=== PATIENT | male | born 2005 ===

== ENCOUNTER 2023-04-19 06:06 | Outpatient (RCR) | payer OTHER, SELFPAY | END 2023-04-19 08:28 | disposition home or self-care (01) | LOC: RPT 06:06 | PROVIDERS: ATTENDING PHYSICIAN Nurse Practitioner; FAMILY PHYSICIAN General Practice | DX: M25.561 Pain in right knee (principal); Z73.6 Limitation of activities due to disability; R20.2 Paresthesia of skin | CPT/HCPCS: 97110; 97161 ==